=== PATIENT | female | born 1985 | race Caucasian/White ===

== ENCOUNTER 2018-02-12 | Emergency (ER) | payer OTHER ==
--- NOTE | 2018-02-12 21:31 | EDPHYS ---
Physician Documentation [facility] Name: Aiyana Mayes Age: 33 yrs Sex: Female : 1985 Arrival Date: 02/12/2018 Time: 20:01 Bed 8 Private MD: ED Physician Ignacio José HPI: 02/12 21:22 This 33 yrs old Female presents to ER via Ambulatory with complaints of Leg cp Swelling, Leg Pain, Abscess. 21:22 The patient presents with swelling, tenderness. The complaints affect the right groin. cp Context: resulted from an unknown cause. Onset: The symptoms/episode began/occurred at an unknown time. Associated signs and symptoms: Pertinent positives: erythema. Treatment prior to arrival includes: no previous treatment. 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 - Social history:: Smoking status: Patient uses tobacco products, smokes one pack cigarettes per day. ROS: 21:24 Eyes: Negative for injury, pain, redness, and discharge. cp 21:24 Constitutional: Negative for body aches, chills, fever, poor PO intake. 21:24 Skin: Positive for erythema, swelling, of the right groin area. 21:24 All other systems are negative. Exam: 21:25 Head/Face: Normocephalic, atraumatic. cp 21:25 Constitutional: The patient appears in no acute distress, alert, non-toxic, well developed, well nourished. 21:25 Eyes: Periorbital structures: appear normal, Conjunctiva: normal, no exudate, no injection, Lids and lashes: appear normal, bilaterally. 21:25 ENT: External ear(s): are unremarkable, Nose: is normal, Mouth: is normal. 21:25 Chest/axilla: Inspection: normal. 21:25 Cardiovascular: Rate: normal, Rhythm: regular. 21:25 Respiratory: the patient does not display signs of respiratory distress, Respirations: normal, no use of accessory muscles, no retractions, no splinting, no tachypnea, labored breathing, is not present. 21:25 Skin: abscess, not appreciated, cellulitis, that is mild, on the right groin. Vital Signs: 20:23 BP 118 / 79; Pulse 86; Resp 20; Temp 97.8; Pulse Ox 99% on R/A; Weight 65.77 kg; Height aj 5 ft. 7 in. (170.18 cm); 21:00 BP 112 / 69; Pulse 78; Resp 18 S; Pulse Ox 99% on R/A; ea 20:23 Body Mass Index 22.71 (65.77 kg, 170.18 cm) MDM: 20:42 Patient medically screened. cp 21:28 Differential diagnosis: cellulitis, abscess, boil. Data reviewed: vital signs, nurses cp notes. Administered Medications: No medications were administered Disposition: 02/13 05:55 Co-signature as Attending Physician, Ignacio José MD I agree with the assessment and tw4 plan of care. Disposition: 02/12/18 21:30 Discharged to Home. Impression: Cellulitis of groin - Right. - Condition is Stable. - Discharge Instructions: Cellulitis. - Prescriptions for Keflex 500 mg Oral Capsule - take 1 capsule by ORAL route every 8 hours for 10 days; 30 capsule. - Medication Reconciliation Form, Thank You Letter, Antibiotic Education, Prescription Opioid Use form. - Follow up: Troy Garza MD; When: 1 - 2 days; Reason: Recheck today's complaints. - Problem is new. - Symptoms are unchanged. Signatures: Cher John, RN RN Raeann Milligan RN RN ak1 Siva Degroot PA PA Ignacio London MD MD tw4
--- NOTE | 2018-02-12 21:31 | ER ---
Nurse's Notes [facility] Name: Aiyana Mayes Age: 33 yrs Sex: Female : 1985 Arrival Date: 02/12/2018 Time: 20:01 Bed 8 Private MD: Diagnosis: Cellulitis of groin-Right Presentation: 02/12 20:19 Presenting complaint: Patient states: Right groin abscess since 09/2017. Patient aj states, "It needs to be debrided but I can't get into a wound clinic.". Transition of care: patient was not received from another setting of care. Onset of symptoms was September 2017. Care prior to arrival: None. 20:19 Method Of Arrival: Ambulatory aj 20:19 Acuity: ALEJO 3 aj Triage Assessment: 20:23 General: Appears in no apparent distress. comfortable, Behavior is calm, cooperative, aj appropriate for age. Pain: Complains of pain in right femoral area. Neuro: Level of Consciousness is awake, alert, obeys commands, Oriented to person, place, time, situation. Respiratory: Airway is patent Respiratory effort is even, unlabored, Respiratory pattern is regular, symmetrical. Derm: Skin is intact, is healthy with good turgor, Skin is pink, warm \\T\\ dry. normal, Abscess located on right femoral area. 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 - Social history:: Smoking status: Patient uses tobacco products, smokes one pack cigarettes per day. Screenin:01 Abuse screen: Denies threats or abuse. Nutritional screening: No deficits noted. ea Tuberculosis screening: No symptoms or risk factors identified. Fall Risk None identified. Assessment: 20:56 General: Appears in no apparent distress. uncomfortable, Behavior is calm, cooperative, ea appropriate for age. Pain: Complains of pain in right groin area Pain radiates to right inner thigh Pain currently is 8 out of 10 on a pain scale. Quality of pain is described as burning, aching, Pain began "this has been going on since September but these past few days the pain has been so uncomfortable" Is continuous. Neuro: Level of Consciousness is awake, alert, obeys commands, Oriented to person, place, time, situation. Cardiovascular: Heart tones present Patient's skin is warm and dry. Respiratory: Airway is patent Respiratory effort is even, unlabored, Respiratory pattern is regular, symmetrical. GI: No signs and/or symptoms were reported involving the gastrointestinal system. : No signs and/or symptoms were reported regarding the genitourinary system. EENT: No signs and/or symptoms were reported regarding the EENT system. Derm: Reports abscess to groin area, patient reports pain radiated to groin and right thigh, reports swelling and drainage. Vital Signs: 20:23 BP 118 / 79; Pulse 86; Resp 20; Temp 97.8; Pulse Ox 99% on R/A; Weight 65.77 kg; Height aj 5 ft. 7 in. (170.18 cm); 21:00 BP 112 / 69; Pulse 78; Resp 18 S; Pulse Ox 99% on R/A; ea 20:23 Body Mass Index 22.71 (65.77 kg, 170.18 cm) aj ED Course: 20:01 Patient arrived in ED. am2 20:21 Triage completed. aj 20:23 Arm band placed on left wrist. Patient placed in waiting room, Patient notified of wait aj time. 20:42 Siva Degroot PA is PHCP. cp 20:42 Ignacio José MD is Attending Physician. cp 20:56 Stacia Gomez, JOSE ALEJANDRO is Primary Nurse. ea 20:56 Patient has correct armband on for positive identification. Placed in gown. Bed in low ea position. Call light in reach. 21:29 Troy Garza MD is Referral Physician. cp 21:33 No provider procedures requiring assistance completed. Patient did not have IV access ak1 during this emergency room visit. Administered Medications: No medications were administered Outcome: 21:30 Discharge ordered by . cp 21:33 Eloped from patient exam room, after seeing physician Time discovered patient gone: ak1 February 12, 2018 at 21:20 pt left prior to signing discharge paper work and prior to receiving discharge paper work, prescription or teaching. ERP notified. 21:33 Condition: stable 21:34 Patient left the ED. ak1 Signatures: Cher John, RN RN Raeann Milligan RN RN ak1 Siva Degroot PA PA cp Moreno, Amanda am2 Stacia Gomez RN RN luis e
== END 2018-02-12 21:34 | disposition home or self-care (01) ==
CPT/HCPCS: 99281